=== PATIENT | male | born 1945 | race Caucasian/White ===

== ENCOUNTER 2025-07-27 08:31 | Emergency (ER) | payer MEDICARE, OTHER, SELFPAY ==
[2025-07-27 08:37] VITALS: BP 171/89
[2025-07-27 08:47] VITALS: BP 182/93
--- NOTE | 2025-07-27 08:50 | ED.GENMED ---
History of Present Illness
General
Chief Complaint: Cold/Flu/URI Symptoms
Source: patient
Exam Limitations: none
Time Seen by Provider: 07/27/25 08:41
History of Present Illness
History of Present Illness:
79-year-old male with history of asthma and hypertension presents with 2 days worth of cough fatigue myalgias fever decreased appetite. No vomiting. No recent travel or surgery. No chest pain. He does feel occasionally short of breath. No other
complaints at this time
Phy Exam
Physical Exam
Physical Exam:
General: Well-appearing male no acute respiratory distress
HEENT normal cephalic atraumatic neck is supple
Heart: Regular rate and rhythm
Lungs: Inspiratory wheeze heard more so on the left side than the right base
skin is warm no rash
Extremities: No cyanosis or
Sepsis
Sepsis Screening
Sepsis Assessment: Sepsis Ruled Out
Sepsis Screen
Sepsis Screen: Sepsis Ruled Out
Date: 07/27/25
Time: 09:51
Course
Orders/Labs/Results
Orders:
Orders
07/27/25 08:49
COVID-19 Antigen Urgent
Source: Nasal Swab
Influenza A+B Rapid Molecular Urgent
LISA Source: Nasal Swab
Specimen Description:
Acetaminophen [Tylenol] 1,000 mg PO NOW STA
Ipratropium/Albuterol Sulfate [Duoneb] 3 ml INH R NOW STA
CR Chest - 2 Views Urgent
Comment:
Reason For Exam: cough, fever
Vital Signs
Initial and Last Documented VS:
Initial Vital Signs
Temp Pulse Resp BP Pulse Ox
101 F H 102 20 171/89 95
07/27/25 08:37 07/27/25 08:37 07/27/25 08:37 07/27/25 08:37 07/27/25 08:37
Last Documented Vital Signs
Temp Pulse Resp BP Pulse Ox
101 F H 103 20 182/93 95
07/27/25 08:37 07/27/25 08:47 07/27/25 08:47 07/27/25 08:47 07/27/25 08:52
MDM/Problems Addressed
Differential Diagnosis Includes:
Patient with 2 days worth of cough fatigue myalgias short of breath and fever
Will test for COVID and flu. Check x-ray for pneumonia. Treat with Tylenol and DuoNeb.
*Pulse Oximetry
SaO2: 95
Oxygen Mode of Delivery: Room air
Patient hypoxic: no
*Critical Care Note
Total Time (30-74mins, 75-104mins- exclusive of procedures): Not Applicable
Update Note
Update Note:
Patient tested positive for influenza A. There is a 2 cm nodule of the right upper lung. Report of the x-ray was given to the patient for follow-up with the family doctor. Will prescribe Tamiflu given his age and other medical comorbidities.
Also prescribed Tessalon. Stable for discharge
ED Attending Note
-
Portions of this chart may have been created with voice recognition software.� Occasional wrong word or��sound alike� substitutions may have occurred due to the inherent limitations of voice recognition software.
Discharge Plan
Departure
Patient Disposition: Home (Routine Discharge)
Date of Disposition: 07/27/25
Time of Disposition: 09:48
Patient with high blood pressure during this ER visit?: No
Discharge Problem:
Influenza A
Instructions: Flu in adults - ED (DC)
Prescriptions:
New
oseltamivir [Tamiflu] 75 mg capsule
75 mg PO BID 5 Days Qty: 10 0RF
benzonatate 100 mg capsule
100 mg PO TID PRN (Reason: Cough) Qty: 14 0RF
Activity Restrictions/Additional Instructions:
Rest. Stay hydrated. Continue with ibuprofen or Tylenol for fever or aches. Use Tamiflu as directed. Use cough medicine as needed. Please follow-up with your family doctor regarding nodule found on the x-ray
Interventions
Interventions:
*General Assessment Last Done: 07/27/25 08:51
*Neglect/Abuse Screening Last Done: 07/27/25 08:37
*ED COVID-19 Vaccine History Last Done: 07/27/25 08:51
*ED Influenza Vaccine History Last Done: 07/27/25 08:51
[facility] Fall Risk Assessment Tool Last Done: 07/27/25 08:42
*Risk Screen - Suicide (C-SSRS) Last Done: 07/27/25 08:37
ED- Pulmonary Assessment Last Done: 07/27/25 08:43
Discharge Date and Time
Print Language: [id number]
[2025-07-27] MEDS: DUONEB 3 ML INH (08:57)
[2025-07-27] MEDS: TYLENOL 1000 MG PO (08:57)
[2025-07-27 09:19] LABS: COVID-19 Antigen Negative (Negative)
[2025-07-27 10:00] VITALS: BP 177/89
== END 2025-07-27 10:02 | disposition home or self-care (01) ==
LOC: EMR 08:31
PROVIDERS: Physician Assistant; EMERGENCY PHYSICIAN Emergency Medicine; FAMILY PHYSICIAN Family Medicine
DX: J10.1 Influenza due to other identified influenza virus with other respiratory manifestations (principal); Z11.52 Encounter for screening for COVID-19; R91.1 Solitary pulmonary nodule; I10 Essential (primary) hypertension; J45.909 Unspecified asthma, uncomplicated
CPT/HCPCS: 99283; 94640; 71046; 87502; 87811